=== PATIENT | male | born 1955 | race Caucasian/White ===

== ENCOUNTER 2019-04-12 09:55 | Observation (INO) | payer BC ==
[~2019-04-12] VITALS: Ht 175.3 cm; Wt 102.1 kg
[2019-04-12] MEDS ORDERED: DEXTROSE 5%/LACTATED RINGERS 1,000 ML IV ONE (11:33)
[2019-04-12] MEDS ORDERED: AMOXICILLIN250 MG PO (12:57)
[2019-04-12] MEDS ORDERED: symbicort IH (12:57)
--- NOTE | 2019-04-12 13:06 | Diagnostic Imaging Report ---
EXAMINATION: CHEST 2 VIEWS INDICATION: Pre-operative COMPARISON: None FINDINGS: LINES/TUBES:None LUNGS:The lungs are well-inflated. No focal consolidation or pulmonary edema. PLEURA:No pleural effusion or pneumothorax. MEDIASTINUM:The cardiomediastinal silhouette appears normal in size and shape. BONES/SOFT TISSUES:No acute osseous injury. ABDOMEN:No free air under the diaphragm. IMPRESSION: No focal pneumonia or pulmonary edema. Signed by: Lolita Ray MD on 04/12/2019 1:03 PM
[2019-04-12] MEDS ORDERED: BUPIVACAINE 0.25%/EPI 30ML SDV INJ ONE (13:46)
[2019-04-12] MEDS: SODIUM CHLORIDE 0.9% 1000ML 1,000 ML IV SCH (15:13)
[2019-04-12] MEDS ORDERED: ACETAMINOPHEN 1000 MG/100 ML IV PRN (15:15)
[2019-04-12] MEDS ORDERED: HYDROMORPHONE 1MG/1ML INJ IV PRN (15:15)
[2019-04-12] MEDS ORDERED: HYDROCODONE/APAP 7.5MG-325MG 1 EA TAB PO PRN (15:15)
[2019-04-12] MEDS ORDERED: FENTANYL CITRATE/PF 100MCG/2 ML INJ ONE ×2 (15:41→18:25)
--- OUTSIDE RECORDS SUMMARY | 2019-04-12 15:46 | XMS REPORT ---
Author Author [facility] Address Unknown Phone Unavailable Care Team Providers Care [employer]ar[employer] Supervisor Name Role Phone Vaibhav LINDO Unavailable Unavailable Problems This patient has no known problems. Allergies, Adverse Reactions, Alerts This patient has no known allergies or adverse reactions. Medications This patient has no known medications. Results Test Description Test Time Test Comments Text Results Atomic Results Result Comments CHEST 2 VIEWS 2019-04-12 13:03:00 [place] [address] Patient Name: JOSE SANCHEZ MR #: [id number] : 1955 Age/Sex: 64/M Req #: [id number] [facility] Physician: Ordered by: MEKA LINDO MD Report #: [id number] Location: OR Room/Bed: Procedure: [id number] DX/CHEST 2 VIEWS Exam Date: 04/12/19 Exam Time: 1217 REPORT STATUS: Signed EXAMINATION: CHEST 2 VIEWS INDICATION: Pre-operative COMPARISON: None FINDINGS: LINES/TUBES:None LUNGS:The lungs are well-inflated. No focal consolidation or pulmonary edema. PLEURA:No pleural effusion or pneumothorax. MEDIASTINUM:The cardiomediastinal silhouette appears normal in size and shape. BONES/SOFT TISSUES:No acute osseous injury. ABDOMEN:No free air under the diaphragm. IMPRESSION: No focal pneumonia or pulmonary edema. Signed by: Sam Ratliff MD on 04/12/2019 1:03 PM Dictated By: SAM RATLIFF MD [id number] Transcribed By: LAURA GREEN on 04/12/19 1303 COPY TO: MEKA LINDO MD
[2019-04-12] MEDS ORDERED: MORPHINE SULFATE 2 MG/ML SYR 1ML ONE (16:17)
--- NOTE | 2019-04-12 16:26 | NUR ---
Patient admitted to unit from PACU. Patient is AAOx3. Post op lap daily. [address] and clean and dry. Lung lambert clear to auscultation. Bowel sounds present x4 and active. No edema noted. Right hand IV in place. Patient due to void. NO c/o pain at this time.
[2019-04-12] MEDS: CEFOXITIN 1GM/ D5W 50ML 50 ML IV SCH ×2 (17:52→23:55)
[2019-04-12] MEDS ORDERED: PANTOPRAZOLE 40 MG 10ML VIAL IV SCH (18:00)
[2019-04-12 18:08] VITALS: BP 135/79
[2019-04-12] MEDS ORDERED: PROPOFOL IV EMULSION 10 MG/ML 20 ML VIAL ONE (18:22)
[2019-04-12] MEDS ORDERED: KETOROLAC TROMETHAMINE 30 MG/ML VIAL ONE (18:22)
[2019-04-12] MEDS ORDERED: ONDANSETRON HCL INJ 2MG/ML 2ML 2 MG/ML VIAL ONE (18:22)
[2019-04-12] MEDS ORDERED: SEVOFLURANE INHAL SOLN 250 ML PEN BTL ONE (18:22)
[2019-04-12] MEDS ORDERED: CEFTRIAXONE SOD 1 GM VIAL ONE (18:22)
[2019-04-12] MEDS ORDERED: EPHEDRINE SULFATE INJ 50 MG/10 ML SYR ONE (18:22)
[2019-04-12] MEDS ORDERED: ROCURONIUM BROMIDE 10 MG/ML 5ML VIAL ONE (18:22)
[2019-04-12] MEDS ORDERED: LIDOCAINE HCL 2% LOCAL INJ 5 ML SDV VIAL INJ ONE (18:22)
[2019-04-12] MEDS ORDERED: PHENYLEPHRINE HCL 1% 10 MG/ML VIAL ONE (18:22)
[2019-04-12] MEDS ORDERED: DEXAMETHASONE SOD PHOS INJ 4 MG/ML VIAL ONE (18:22)
[2019-04-12] MEDS ORDERED: MIDAZOLAM HCL 2 MG/2 ML VIAL ONE (18:25)
[2019-04-12 19:00] VITALS: BP 147/85
[2019-04-12 20:33] VITALS: BP 147/85
--- NOTE | 2019-04-12 21:44 | Operative Report ---
DATE OF PROCEDURE: 04/12/2019 SURGEON: Blade Parra MD PREOPERATIVE DIAGNOSIS: Acute cholecystitis and cholelithiasis. POSTOPERATIVE DIAGNOSIS: Acute cholecystitis and cholelithiasis. OPERATION PERFORMED: Laparoscopic cholecystectomy. ASSISTANTS: 1. Kam Parra M.D. 2. NATHAN Cleis. ANESTHESIA: General endotracheal. COMPLICATIONS: None. ESTIMATED BLOOD LOSS: Minimal. DESCRIPTION OF PROCEDURE: With the patient lying in bed in the supine position under good general endotracheal anesthesia, the abdomen was prepped with Betadine solution and draped in the usual manner. A Veress needle was introduced into the umbilicus and pneumoperitoneum was established without any difficulty. An 11 mm trocar was placed into the umbilicus and a 10 mm video laparoscope was placed into the intra-abdominal cavity. Under direct vision, three 5 mm trocars were placed in the right subcostal region. An extra 5 mm trocar was placed in the left upper abdomen to retract redundant transverse colon. Laparoscopy at this point revealed an acutely inflamed thick-walled distended gallbladder showing all the signs of acute cholecystitis containing multiple stones. The peritoneum overlying the neck of the gallbladder was then opened and the cystic duct was identified. The cystic duct was followed to its junction with the common duct. The cystic duct was then circumferentially dissected away from the common duct, doubly clipped and divided. The cystic artery was similarly doubly clipped and divided. The gallbladder was then slowly and carefully taken off the liver bed using the cautery scissors. There was a lot of edema and thickening of the liver bed. The gallbladder was totally and completely removed from the liver bed and perfect hemostasis was ascertained. The gallbladder was then grasped and placed in a pouch and removed through the umbilicus after enlarging the umbilical incision to allow for passage of the inflamed gallbladder. Video laparoscopy was then again carried out. The liver bed was found to be perfectly dry. All the excess fluid was aspirated. The pneumoperitoneum was evacuated and all the trocars were removed under direct vision. The midline fascia at the umbilicus was then closed with two [id number] 0-Vicryl. All layers were infiltrated on the way out with solution of 0.25% Marcaine. Subcutaneous tissue was approximated with 3-0 Vicryl and the skin was closed with subcuticular 5-0 Vicryl. Benzoin, Steri-Strips, and Band-Aids were applied. The sponge, lap, and needle count was correct. The patient tolerated the procedure well and returned to the recovery room in stable condition. MD GEE Felix/ZAID /[id number]
[2019-04-12 23:15] VITALS: BP 123/81
[2019-04-13] MEDS: SODIUM CHLORIDE 0.9% 1000ML 1,000 ML IV SCH ×2 (02:20→11:13)
[2019-04-13 04:35] VITALS: BP 134/65
[2019-04-13] MEDS: CEFOXITIN 1GM/ D5W 50ML 50 ML IV SCH ×2 (05:50→12:00)
[2019-04-13 06:18] LABS: BASOPHILS % 0.1 % (0.0-1.0); EOSINOPHILS % 0.1 % (0.0-6.0); HEMATOCRIT 40.5 % (38.2-49.6); HEMOGLOBIN 13.5 g/dL (14.0-18.0); LYMPHOCYTES # (AUTO) 0.8 (1.0-3.2); LYMPHOCYTES % 6.3 % (18.0-39.1); MEAN CORPUSCULAR HEMOGLOBIN 28.9 pg (28-32); MEAN CORPUSCULAR HGB CONC 33.3 g/dL (31-35); MEAN CORPUSCULAR VOLUME 86.7 fL (81-99); MONOCYTES # (AUTO) 0.8 (0.2-0.8); MONOCYTES % 6.1 % (4.4-11.3); PLATELET COUNT 203 x10e3/uL (140-360); RED BLOOD COUNT 4.67 x10e6/uL (4.3-5.7); RED CELL DISTRIBUTION WIDTH 13.4 % (11.7-14.4)
[2019-04-13 06:35] LABS: ALANINE AMINOTRANSFERASE 31 IU/L (0-55); ALKALINE PHOSPHATASE 58 IU/L (40-150); ANION GAP 11.8 mmol/L (8-16); BLOOD UREA NITROGEN 11 mg/dL (7-26); BUN/CREATININE RATIO 13 (6-25); CALCIUM 8.5 mg/dL (8.4-10.2); CARBON DIOXIDE 27 mmol/L (22-29); CHLORIDE 104 mmol/L (98-107); CREATININE, SERUM 0.84 mg/dL (0.72-1.25); EST GLOMERULAR FILTRATION RATE > 60 ML/MIN (60-); GLUCOSE 114 mg/dL (74-118); POTASSIUM 3.8 mmol/L (3.5-5.1); SODIUM 139 mmol/L (136-145)
[2019-04-13 08:44] VITALS: BP 134/65
[2019-04-13 09:40] VITALS: BP 116/66
[2019-04-13] MEDS ORDERED: LEVAQUIN500 MG PO (11:57)
[2019-04-13] MEDS ORDERED: TYLENOL WITH C1 EACH PO (11:58)
--- NOTE | 2019-04-13 14:47 | NUR ---
Nutrition Screen Note RD Recommendation for Physician: Advance diet as tolerated Plan of Care: RD following, monitoring for tolerance and adequacy Nutrition reason for involvement: Nutrition Risk Trigger - MST Primary Diagnose(s): Cholecystitis PMH:gallstones, HTN Ht:69 in Wt:225lb BMI: kg/m2 IBW:160lb +/-10% RD Assessment: (04/13/2019) Chart reviewed. Labs and meds reviewed. Pt with No known food allergies, Denies N,V,D, nor any chewing or swallowing difficulty Current Diet: Clear liquid Malnutrition Evaluation (04/13/2019) The patient does not meet criteria for a specified degree of malnutrition at this time. Will re-evaluate at follow-up as appropriate. Diet Education Needs Assessment: Diet education not indicated. Nutrition Care Level: Low Signed: Nikhil Newman RD, LD, [facility]
== END 2019-04-13 12:30 | disposition home or self-care (01) ==
LOC: OR 09:55 → PACU V 15:15 → MED/SURG 16:30
PROVIDERS: ADMIT Surgery; ATTEND Surgery
DX: K80.00 Calculus of gallbladder with acute cholecystitis without obstruction (principal)
CPT/HCPCS: 36415 ×2; 47562; 71046; 80053; 82948; 85025; 88304; 93005; 96361; C1766; C9113; G0378 ×2; J0696; J1100; J1885; J2001; J2250; J2270; J2370; J2405; J2704; J3010; J7030; J7121